=== PATIENT | male | born 1940 | race Caucasian/White ===

== ENCOUNTER 2023-09-04 13:39 | Emergency (ER) | payer OTHER ==
[2023-09-04 14:53] LABS: SARS-CoV-2 NAA Rapid Test Not Detected (NotDetected)
== END 2023-09-04 15:17 | disposition home or self-care (01) ==
LOC: MADERS 13:39
DX: J00 Acute nasopharyngitis [common cold] (principal); I10 Essential (primary) hypertension; Z20.822 Contact with and (suspected) exposure to COVID-19; Z79.899 Other long term (current) drug therapy
CPT/HCPCS: 71046; 87804; U0002